=== PATIENT | male | born 1940 | race Caucasian/White ===

== ENCOUNTER → 2016-05-27 | Outpatient (CLI) | payer OTHER, MEDICARE ==
--- NOTE | 2016-05-27 13:33 | DX ---
PA and lateral chest History: Dyspnea. Comparison: CT angio chest April 25, 2016. Findings: The lungs are hyperexpanded with interstitial prominence and mild peribronchial thickening without focal consolidation. There is no pneumothorax or pleural effusion. The heart and pulmonary va sculature are normal. 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 Mild degener ative change is present in the spine. Impression: COPD/emphysema, similar in appearance to the comparison CT.
== END ==
LOC: BMCIMAGING 12:49
PROVIDERS: ATTEND Internal Medicine
DX: J44.9 Chronic obstructive pulmonary disease, unspecified (principal)

== ENCOUNTER → 2016-05-29 | Outpatient (CLI) | payer OTHER, MEDICARE ==
[~2016-05-29] MED LIST: IOPAMIDOL (ISOVUE 370) 75 ML BTL IV ONE
--- NOTE | 2016-05-29 19:34 | CT ---
CT Chest Angiogram Clinical Indications: Follow up aortic penetrating ulcers. Technique: Thinly collimated multidetector helical CT imaging was performed through the chest while 90 mL Isovue-370 were injected intravenously, without complication. The images were then transferred to an independent workstation where multiplanar and three-dimensional reconstructions were performed by the interpreting physician and reviewed at multiple windows. Dose reduction techniques were util ized. Findings Chest: There is upper lobar emphysema and lower lobar atelectatic versus interstitial lung changes a t both bases. This is stable compared to the prior examination. A stable adrenal adenoma is noted i n the upper abdomen. CT Chest Angiogram: There is no evidence of pulmonary embolus. Coronary artery calcification is pre sent on this nongated study. The ascending aorta is grossly unremarkable. The aortic arch is grossl y unremarkable. The rim of intramural hematoma seen on the prior examination has nearly completely r esolved. Previously, it measured 11 mm. Today, it measures 3.5 mm. Posterior penetrating ulcer see n, series #5, image #102, is decreased, measuring 7 x 7 mm on today's examination, previously 8.5 x 8 .9 mm. The distal ulcerative plaque versus reentry flap appears slightly longer on today's examinati on but more shallow. The intramural hematoma just above it is also improving compared to the prior e xamination. This all ends approximately at the level of the aortic hiatus. Limited examination of t he visceral vasculature shows a patent celiac axis and SMA. Impressions 1. Improving hematoma of the aortic wall and improving upper entry site versus penetrating ulcer. T he lower reentry site is slightly longer today but shallower in depth. 2. Pulmonary parenchymal disease and emphysema, as described above, unchanged. Results discussed by Dr. Hinds with Dr. Reddy on May 29, 2016 at 1715 hours. E:amm
== END ==
LOC: FIMAGING 15:40
PROVIDERS: ATTEND Thoracic Surgery (Cardiothoracic Vascular Surgery)
DX: I71.01 Dissection of thoracic aorta (principal); J98.4 Other disorders of lung; J43.9 Emphysema, unspecified

== ENCOUNTER → 2016-10-10 | Outpatient (CLI) | payer OTHER, MEDICARE | LOC: FIMAGING 09:41 → EDSTATUS 09:42 | PROVIDERS: ATTEND Internal Medicine Critical Care Medicine | DX: J43.9 Emphysema, unspecified (principal); J98.4 Other disorders of lung ==

== ENCOUNTER → 2017-01-07 | Outpatient (CLI) | payer OTHER, MEDICARE ==
[~2017-01-07] MED LIST changes: +IOPAMIDOL (ISOVUE 370) 100 ML BTL IV ONE; -IOPAMIDOL (ISOVUE 370) 75 ML BTL IV ONE
== END ==
LOC: FIMAGING 10:02
PROVIDERS: ATTEND Thoracic Surgery (Cardiothoracic Vascular Surgery)
DX: I71.01 Dissection of thoracic aorta (principal); I71.4 Abdominal aortic aneurysm, without rupture; J43.9 Emphysema, unspecified
CPT/HCPCS: 71275; Q9967

== ENCOUNTER → 2017-02-17 | Outpatient (CLI) | payer OTHER, MEDICARE | LOC: BMCIMAGING 11:00 | PROVIDERS: ATTEND Nurse Practitioner Adult Health | DX: M25.552 Pain in left hip (principal); R29.898 Other symptoms and signs involving the musculoskeletal system ==

== ENCOUNTER → 2017-04-23 | Outpatient (CLI) | payer OTHER, MEDICARE | LOC: FIMAGING 19:42 | PROVIDERS: ATTEND Psychiatry & Neurology Neurology | DX: R29.898 Other symptoms and signs involving the musculoskeletal system (principal); M51.34 Other intervertebral disc degeneration, thoracic region; M51.36 Other intervertebral disc degeneration, lumbar region; M51.26 Other intervertebral disc displacement, lumbar region ==

== ENCOUNTER → 2017-07-07 | Outpatient (CLI) | payer OTHER, MEDICARE | LOC: FIMAGING 13:51 | PROVIDERS: ATTEND Thoracic Surgery (Cardiothoracic Vascular Surgery) | DX: I71.9 Aortic aneurysm of unspecified site, without rupture (principal); I25.10 Atherosclerotic heart disease of native coronary artery without angina pectoris; J43.2 Centrilobular emphysema; J84.10 Pulmonary fibrosis, unspecified | CPT/HCPCS: 71275; Q9967 ==

== ENCOUNTER → 2017-12-29 | Outpatient (CLI) | payer OTHER, MEDICARE | DX: J84.10 Pulmonary fibrosis, unspecified (principal) ==

== ENCOUNTER → 2018-01-19 | Outpatient (CLI) | payer OTHER, MEDICARE | LOC: FIMAGING 13:17 | PROVIDERS: ATTEND Thoracic Surgery (Cardiothoracic Vascular Surgery) | DX: I71.2 Thoracic aortic aneurysm, without rupture (principal); I25.10 Atherosclerotic heart disease of native coronary artery without angina pectoris | CPT/HCPCS: 71275; Q9967; 82565-PO ==